=== PATIENT | male | born 1950 | race Caucasian/White ===

== ENCOUNTER 2016-05-23 07:47 | Emergency (ER) | payer MEDICARE, OTHER ==
[2016-05-23] MEDS ORDERED: SODIUM CHLORIDE 3 ML VIAL.NEB IH ONE (08:23)
[2016-05-23 08:27] LABS: MEAN CORPUSCULAR HEMOGLOBIN 28.3 pg (28.0-34.0); MEAN CORPUSCULAR VOLUME 88.7 fl (80.0-100.0)
[2016-05-23 08:30] LABS: eGFR (African) > 60; eGFR (Non-African) > 60
[2016-05-23 08:39] LABS: ANISOCYTOSIS 1+ (NEGATIVE); EOSINOPHILS % 1 % (0-7); HYPOCHROMASIA 1+ (NEGATIVE); MONOCYTES % 2 % (0-11); SEGMENTED NEUTROPHILS % 91 % (39-79)
[2016-05-23] MEDS ORDERED: 0.9 % SODIUM CHLORIDE 1,000 ML IV ONE (09:33)
--- NOTE | 2016-05-23 09:48 | ED Physician Documentation ---
Dyspnea - HISTORIAN Historian: patient, other (brother in law) - HPI Stated Complaint: Shortness of Breath Chief Complaint: Dyspnea Onset: hours Duration: worse Further Comments: yes (65 year old male patient brought in by brother in law for complaints of SOB and dyspnea. Patient was seen by ENT this week, scope completed and biopsy taken of mass in "neck" per patient's brother in law. Brother in Law states patient has had increased secretions, suctioned thick dark yellow secretions this morning. Denies fever.) - ROS CONST: no problems EYES/ENT: none GI/: none NEURO/PSYCH: denies: headache MS/SKIN/LYMPH: none - PAST HX Lung Disease: COPD PE Risk Factors: hypertension Other History: diabetes Type 2, other ("Neck cancer" completed chemo and radiation 6 months ago per brother in law; G-tube) Allergies/Adverse Reactions: Allergies Allergy/AdvReac Type Severity Reaction Status Date / Time penicillin G Allergy Verified 05/23/16 08:43 Home Medications: Ambulatory Orders Medication Instructions Recorded Albuterol Sulfate [Albuterol 05/23/16 Sulfate] Atorvastatin Calcium [Lipitor] 05/23/16 Diltiazem HCl [Cartia Xt] 05/23/16 Famotidine [Famotidine] 05/23/16 Fluticasone/Salmeterol [Advair Hfa 1 puff IH 05/23/16 230-21 Mcg Inhaler] Ipratropium [place] [Ipratropium 05/23/16 [place]] Lancets 05/23/16 Metformin HCl [Glucophage] 05/23/16 Metoprolol Tartrate [Lopressor] 05/23/16 Montelukast Sodium [Montelukast 05/23/16 Sodium] Omeprazole [Omeprazole] 05/23/16 Oxycodone HCl [Oxycodone HCl] 05/23/16 - SOCIAL HX Smoking History: quit greater than 1 year, other (hx 3ppd smoker) - FAMILY HX Family History: denies: none - VITAL SIGNS Vital Signs: Vital Signs Temp Pulse Resp BP Pulse Ox 97.8 F 88 24 114/65 96 05/23/16 07:50 05/23/16 09:30 05/23/16 07:50 05/23/16 07:50 05/23/16 09:30 - REVIEWED ASSESSMENTS Nursing Assessment Reviewed: Yes Vitals Reviewed: Yes Progress - Progress Progress: BBS diminished throughout. Sat 88-90% on trach collar at 4L. Lavaged and suctioned copious amount of thick brown secretions. O2 increased to 40% (10L) ABG reviewed - ph 7.4 pCo2 47 pO2 57 HCO3 29.1 B.E 3.6 Lavage and suctioned multiple times - continue to suction large amounts of thick brown secretions. Discussed treatment options with brother in law, patient is requiring frequent pulmonary toiletry and increased oxygen demand. Will likely need admission to hospital. Brother in law prefer [facility] where patient has ENT and helper electrical. Sat improved to 95-96% on 40% trach collar after suctioning multiple times. Call to [facility]. Consult with Dr Montenegro, order to send patient to ER at [facility] for re-evaluation. - Additional EKG/XRAY/Consults EKG #2: rhythm (SR, rate 75, no acute changes. ) ED Results Lab/Radiology - Lab Results Lab Results: Lab Results 05/23/16 05/23/16 05/23/16 08:15 08:15 08:15 WBC RBC Hgb Hct MCV MCH MCHC RDW Plt Count Seg Neutrophils % Lymphocytes % Monocytes % Eosinophils % Plt Morphology Comment Hypochromasia Anisocytosis RBC Morph Comment Sodium 136 mmol/L mmol/L (136-145) Potassium 4.1 mmol/L mmol/L (3.5-5.0) Chloride 98 mmol/L mmol/L (98-110) Carbon Dioxide 33 mmol/L H mmol/L (20-32) BUN 16 mg/dL mg/dL (10-26) Creatinine 0.7 mg/dL mg/dL (0.4-1.5) Est GFR ( Amer) > 60 (60 - ) Est GFR (Non-Af Amer) > 60 (60 - ) Glucose 244 mg/dL H mg/dL (70-99) Calcium 10.1 mg/dL mg/dL (8.5-10.5) Total Bilirubin 0.6 mg/dL mg/dL (0.2-1.2) AST 19 U/L U/L (0-41) ALT 27 U/L U/L (0-45) Alkaline Phosphatase 66 U/L U/L (46-116) Creatine Kinase 50 U/L U/L (0-225) Troponin I < 0.03 ng/mL L ng/mL (0.03-0.06) NT-Pro-B Natriuret Pep 157.6 pg/mL H pg/mL (15.0-125.0) Total Protein 7.5 g/dL g/dL (6.0-8.5) Albumin 4.7 g/dL g/dL (3.0-5.5) 05/23/16 08:15 WBC 8.80 K/ul K/ul (4.00-12.00) RBC 4.16 M/ul M/ul (3.90-5.20) Hgb 11.8 g/dL L g/dL (12.0-18.0) Hct 36.9 % L % (37.0-53.0) MCV 88.7 fl fl (80.0-100.0) MCH 28.3 pg pg (28.0-34.0) MCHC 32.0 g/dL g/dL (30.0-36.0) RDW 15.6 % H % (11.3-14.3) Plt Count 218 K/mm3 K/mm3 (130-400) Seg Neutrophils % 91 % H % (39-79) Lymphocytes % 6 % L % (16-50) Monocytes % 2 % % (0-11) Eosinophils % 1 % % (0-7) Plt Morphology Comment Normal (NORMAL) Hypochromasia 1+ H (NEGATIVE) Anisocytosis 1+ H (NEGATIVE) RBC Morph Comment Abnormal H (NORMAL) Sodium Potassium Chloride Carbon Dioxide BUN Creatinine Est GFR ( Amer) Est GFR (Non-Af Amer) Glucose Calcium Total Bilirubin AST ALT Alkaline Phosphatase Creatine Kinase Troponin I NT-Pro-B Natriuret Pep Total Protein Albumin - Radiology Radiology Impressions: Single frontal view of the chest History: Shortness of breath Findings: No comparison studies Cardiomegaly is noted with pulmonary vascular congestion. Elevated right hemidiaphragm. Right basilar atelectasis is present There is no pleural effusion or pneumothorax No acute osseous pathology Face mask with tubing noted in the lower neck region Impression: 1. Cardiomegaly pulmonary vascular congestion 2.Elevated right hemid - Orders Orders: ED Orders Category Date Time Status Continuous EKG monitoring Q30M Care 05/23/16 08:10 Active Continuous Pulse Oximetry Q30M Care 05/23/16 08:[address] Saline Lock/IV NOW Care 05/23/16 08:10 Completed CHEST 1 VIEW [RAD] Stat Exams 05/23/16 08:08 Ordered ARTERIAL BLOOD GAS Stat Lab 05/23/16 08:04 Ordered BNP [NT-proBNP] Stat Lab 05/23/16 08:15 Completed CBC/PLATELET/DIFF Stat Lab 05/23/16 08:15 Completed CMP Stat Lab 05/23/16 08:15 Completed CREATINE KINASE Stat Lab 05/23/16 08:15 Completed TROPONIN I (cTnI) Stat Lab 05/23/16 08:15 Completed UA W/MICRO IF INDICATED Stat Lab 05/23/16 08:10 Ordered 0.9 % Sodium Chloride [Normal Saline] 1,000 ml Med 05/23/16 09:33 Active IV NOW Sodium Chloride For Inhalation [Dey] Med 05/23/16 08:23 Discontinued 12 ml IH .STK-MED ONE Oxygen Daily Oxygen 05/23/16 08:15 Ordered EKG WITH COMPARISON Stat Ther 05/23/16 08:10 Ordered Dyspnea Physical Exam - EXAM General Appearance: moderate distress EENT: eye inspection normal, AMBER, other (trach - O2 increased 40% per trach collar) Respiratory: decreased air movement (throughout, course) CVS: reg. rate & rhythm, no murmur, no gallop, no friction rub, pulses full, pulses equal Abdomen: non-tender, no organomegaly, no distention, no ascites Skin: color nml, no rash, warm, nml palp., dry Extremities: non-tender, normal range of motion, no evidence of injury, no edema , J, [employer] Neuro/Psych: oriented x3, CN's nml as tested, motor nml, sensation nml, mood/ affect nml Discharge Clincal Impression: Increased tracheal secretions, Hypoxemia requiring supplemental oxygen, Tracheostomy present Dyspnea Qualifiers: Dyspnea type: shortness of breath Qualified Code(s): R06.02 - Shortness of breath Home Medications: Ambulatory Orders Albuterol Sulfate [Albuterol Sulfate] 05/23/16 Atorvastatin Calcium [Lipitor] 05/23/16 Diltiazem HCl [Cartia Xt] 05/23/16 Famotidine [Famotidine] 05/23/16 Fluticasone/Salmeterol [Advair Hfa 230-21 Mcg Inhaler] 1 puff IH 05/23/16 Ipratropium [place] [Ipratropium [place]] 05/23/16 Lancets 05/23/16 Metformin HCl [Glucophage] 05/23/16 Metoprolol Tartrate [Lopressor] 05/23/16 Montelukast Sodium [Montelukast Sodium] 05/23/16 Omeprazole [Omeprazole] 05/23/16 Oxycodone HCl [Oxycodone HCl] 05/23/16 Condition: Fair Disposition: 02 XFER SHT-TRM HOSP Decision to Admit: NO Decision Time: 10:00
[2016-05-23 10:00] VITALS: BP 107/72
--- NOTE | 2016-05-23 11:06 | Diagnostic Imaging Report ---
BROOKLYN BAUTISTA (SOCK AND STOCKING IRONER) - ER [facility] [address] [facility].[address] [address] Report Submission Date: May 23, 2016 8:45:26 AM CDT Patient Study Name: KIERA ROCK Date: May 23, 2016 8:18:04 AM CDT Modality Type: CR Gender: M Description: CHEST : 52 Institution: [facility] Physician: BROOKLYN BAUTISTA (FILIBERTO) - ER Single frontal view of the chest History: Shortness of breath Findings: No comparison studies Cardiomegaly is noted with pulmonary vascular congestion. Elevated right hemidiaphragm. Right basilar atelectasis is present There is no pleural effusion or pneumothorax No acute osseous pathology Face mask with tubing noted in the lower neck region Impression: 1. Cardiomegaly pulmonary vascular congestion 2.Elevated right hemidiaphragm and right basilar atelectasis. No pleural effusion Electronically signed on May 23, 2016 8:45:26 AM CDT by: Praveena TATE
[2016-05-24 07:35] LABS: ABG BASE EXCESS 3.9 (-2 - +2); ABG PH 7.4 (7.35-7.45)
== END 2016-05-23 09:45 | disposition short-term general hospital (02) ==
LOC: ED 07:47
DX: R06.02 Shortness of breath (principal); R09.02 Hypoxemia; Z99.81 Dependence on supplemental oxygen; Z96.89 Presence of other specified functional implants
CPT/HCPCS: 36600; 71010; 80053; 82550; 82803; 83880; 84484; 85025; J7030; 99283; 99284; S1016

== ENCOUNTER 2016-08-09 12:14 | Emergency (ER) | payer OTHER ==
[2016-08-09 12:53] VITALS: BP 106/62
[2016-08-09] MEDS: ALBUTEROL SULFATE 2.5 MG/3 ML AMPUL.NEB NEB ONE (13:19)
--- NOTE | 2016-08-09 14:13 | ED Physician Documentation ---
Dyspnea - HISTORIAN Historian: patient, child - HPI Chief Complaint: Dyspnea Additional Information: pt copd trach recent dx ca trachea recendt radiation 24 hr o2 tubve feeding takes food po freq aspirates, w/pneumonia last 2 w and freq prior since tacheostomy w/freq aspiration last antib;iotic cefdinir Onset: other (turned over in bed last noct 0200 twisted felt pop w/pain lt mid thorax now cant cou) Duration: continues in ED Severity: moderate (due to fact cant cough w/prev morbidity) Exacerbated By: change in position, coughing, other (deep breathing) Associated Symptoms: chest pain, chest discomfort, productive cough, other (leg edema angel regulatess w/ lasix - she says no tx w/ this amt edema legs feet) - ROS CONST: other (no bm for two days. no concern) GI/: other (nocturia q 1hr) - PAST HX Lung Disease: asthma, COPD, pneumonia, other (freq pneumonia ca trachea diabetes-labile recent range 48 - 315( this am)) PE Risk Factors: hypertension, cancer, leg swelling Allergies/Adverse Reactions: Allergies Allergy/AdvReac Type Severity Reaction Status Date / Time penicillin G Allergy Verified 08/09/16 12:37 Home Medications: Ambulatory Orders Medication Instructions Recorded Albuterol Sulfate [Albuterol 2.5 mg INH BID 05/23/16 Sulfate] Atorvastatin Calcium [Lipitor] 80 mg PO HS 05/23/16 Diltiazem HCl [Cartia Xt] 120 mg PO DAILY 05/23/16 Famotidine [Famotidine] 40 mg PO BID 05/23/16 Fluticasone/Salmeterol [Advair Hfa 1 puff IH BID 05/23/16 230-21 Mcg Inhaler] Ipratropium [place] [Ipratropium 0.2 mg INH Q4H PRN 05/23/16 [place]] Metformin HCl [Glucophage] 500 mg PO BID 05/23/16 Metoprolol Tartrate [Lopressor] 12.5 mg PO BID 05/23/16 Montelukast Sodium [Montelukast 10 mg PO DAILY 05/23/16 Sodium] Omeprazole [Omeprazole] 05/23/16 Oxycodone HCl [Oxycodone HCl] 10 mg PO Q4H PRN 05/23/16 Orphenadrine Citrate [Norflex] 100 tab PO BID #30 tab 08/09/16 - SOCIAL HX Smoking History: non-smoker (x 15 mo heavy prior) Alcohol Use: none (but prev very heavy for years) Drug Use: methamphetamines - FAMILY HX Family History: no significant history - VITAL SIGNS Vital Signs: Vital Signs Temp Pulse Resp BP Pulse Ox 107/72 05/23/16 09:45 - REVIEWED ASSESSMENTS Nursing Assessment Reviewed: Yes Vitals Reviewed: Yes ED Results Lab/Radiology - Radiology Radiology Impressions: no fx seen on ct by rad---also no pneumonia - Orders Orders: ED Orders Category Date Time Status Assess pulse oximetry Q1H Care 08/09/16 12:[address] CHEST W/ CONTRAST Stat Exams 08/09/16 Ordered ARTERIAL BLOOD GAS Stat Lab 08/09/16 Uncollected CBC/PLATELET/DIFF Routine Lab 08/09/16 Ordered CMP Routine Lab 08/09/16 Ordered PT-INR Routine Lab 08/09/16 Ordered Albuterol Sulfate [Ventolin] Med 08/09/16 12:47 Once 2.5 mg NEB NOW ONE Oxygen Daily Oxygen 08/09/16 13:00 Ordered EKG WITH COMPARISON Stat Ther 08/09/16 Ordered Dyspnea Physical Exam - EXAM General Appearance: moderate distress EENT: eye inspection normal Neck: nml inspection Respiratory: respiratory distress, decreased air movement, wheezes, rales, rhonchi. No: breath sounds nml CVS: reg. rate & rhythm Abdomen: non-tender. No: no distention Skin: diaphoresis (slight) Extremities: edema Neuro/Psych: oriented x3, other (speaks very low appears totally coherejust now pt related wanted very little done dt px of 5wks to live) Discharge Clincal Impression: rib fracture-=clinical, terminal ca trachea, copd Prescriptions: Orphenadrine Citrate [Norflex] 100 tab PO BID #30 tab Referrals: Primary Doctor,No [Primary Care Provider] - 2 Days Additional Instructions: home cpt norflex as directed Home Medications: Ambulatory Orders Albuterol Sulfate [Albuterol Sulfate] 2.5 mg INH BID 05/23/16 Atorvastatin Calcium [Lipitor] 80 mg PO HS 05/23/16 Diltiazem HCl [Cartia Xt] 120 mg PO DAILY 05/23/16 Famotidine [Famotidine] 40 mg PO BID 05/23/16 Fluticasone/Salmeterol [Advair Hfa 230-21 Mcg Inhaler] 1 puff IH BID 05/23/16 Ipratropium [place] [Ipratropium [place]] 0.2 mg INH Q4H PRN 05/23/16 Metformin HCl [Glucophage] 500 mg PO BID 05/23/16 Metoprolol Tartrate [Lopressor] 12.5 mg PO BID 05/23/16 Montelukast Sodium [Montelukast Sodium] 10 mg PO DAILY 05/23/16 Omeprazole [Omeprazole] 05/23/16 Oxycodone HCl [Oxycodone HCl] 10 mg PO Q4H PRN 05/23/16 Orphenadrine Citrate [Norflex] 100 tab PO BID #30 tab 08/09/16 Condition: Fair Disposition: 01 HOME, SELF-CARE Decision to Admit: NO Decision Time: 14:13
--- NOTE | 2016-08-09 14:16 | Diagnostic Imaging Report ---
[facility] [address] [facility] [address] [address] Report Submission Date: Aug 09, 2016 1:36:58 PM CDT Patient Study Name: KIERA ROCK Date: Aug 09, 2016 1:06:45 PM CDT Modality Type: CT\SR Gender: M Description: CT CHEST W/O CONTRAST : 52 Institution: [facility] Physician HERON SANCHEZ - MERON EXAMINATION: CT chest without contrast HISTORY: Fall with left-sided pain TECHNIQUE: Transaxial computed tomographic images of the chest were obtained without the use of intravenous contrast according to standard protocol. Coronal size reformatted images were obtained as part of the examination. FINDINGS: The heart is mildly enlarged. There is mild pericardial calcifications present. There is coronary artery and aortic atherosclerosis. There is no adenopathy present within the chest. The lungs are free of acute infiltrate. There is no pleural effusion or pneumothorax identified. Tracheostomy tube is in place. . At the clavicles sternum and visible portion of the scapula and proximal humeri are intact. There is no evidence of acute rib fracture. There is evidence of old healed 7th rib fracture. Gastrostomy tube is in place. Vertebral body heights and alignments are normal. IMPRESSION: 1.No acute pulmonary disease. 2. Mild cardiomegaly with coronary artery and aortic atherosclerosis. 3. Tracheostomy tube. 4. No acute rib fracture. Old healed left 7th rib fracture. Electronically signed on Aug 09, 2016 1:36:58 PM CDT by: Adonay TATE
== END 2016-08-09 14:21 | disposition home or self-care (01) ==
LOC: ED 12:14
DX: S22.39XA Fracture of one rib, unspecified side, initial encounter for closed fracture (principal); X58.XXXA Exposure to other specified factors, initial encounter; Y93.9 Activity, unspecified; Y99.9 Unspecified external cause status; J44.9 Chronic obstructive pulmonary disease, unspecified
CPT/HCPCS: 71250; 99283